=== PATIENT | male | born 1970 | race Caucasian/White ===

== ENCOUNTER 2016-12-18 12:01 | Emergency (ER) | payer OTHER ==
[2016-12-18 12:01] VITALS: BMI 29.5
--- NOTE | 2016-12-18 12:35 | ED PDOC ---
Arrival/HPI - General Chief Complaint: Abdominal Pain Time Seen by Provider: 12/18/16 12:31 - History of Present Illness Narrative History of Present Illness (Text): 46M c/o pain and swelling in the left side of his face, mild for a few days then became worse yesterday. no f/c, n/v. he had same sx a year ago and sx resolved after taking antibiotics. he also reports sinus drainage for several weeks. Past Medical History - Infectious Disease Hx of Infectious Diseases: None - Cardiac Hx Cardiac Disorders: No Hx Pacemaker: No - Pulmonary Hx Respiratory Disorders: No - Neurological Hx Neurological Disorder: No Hx Paralysis: No - HEENT Hx HEENT Disorder: No - Renal Hx Renal Disorder: No - Endocrine/Metabolic Hx Endocrine Disorders: No - Hematological/Oncological Hx Blood Disorders: No Hx Blood Transfusions: No Hx Blood Transfusion Reaction: No - Integumentary Hx Dermatological Disorder: No - Musculoskeletal/Rheumatological Hx Musculoskeletal Disorders: No - Gastrointestinal Hx Gastrointestinal Disorders: No - Genitourinary/Gynecological Hx Genitourinary Disorders: No - Psychiatric Hx Psychophysiologic Disorder: No Hx Emotional Abuse: No Hx Physical Abuse: No Hx Substance Use: No - Anesthesia Hx Anesthesia Reactions: No Hx Malignant Hyperthermia: No - Suicidal Assessment Feels Threatened In Home Enviroment: No Family/Social History Family/Social History: Other (nc) Smoking Status: Never Smoked Hx Alcohol Use: Yes (SOCIALLY) Hx Substance Use: No Allergies/Home Meds Allergies/Adverse Reactions: Allergies No Known Allergies Allergy (Verified 05/04/16 11:12) Home Medications: Home Meds Medication Instructions Recorded Confirmed No Known Home Med 12/18/16 12/18/16 Review of Systems - Review of Systems Constitutional: absent: Fevers Eyes: absent: Vision Changes, Photophobia, Eye Pain ENT: Sinus Congestion. absent: Epistaxis Respiratory: absent: SOB Cardiovascular: absent: Chest Pain Gastrointestinal: absent: Nausea, Vomiting Neurological: absent: Dizziness, Focal Weakness Physical Exam Vital Signs Reviewed: Yes Appearance: Positive for: Well-Appearing, Non-Toxic, Comfortable Pain Distress: None Mental Status: Positive for: Alert and Oriented X 3 - Systems Exam Head: Present: Atraumatic Pupils: Present: PERRL Extroacular Muscles: Present: EOMI (no pain w eye movement) Mouth: Present: Moist Mucous Membranes, Other (no abscess). No: Drooling, Trismus Neck: Present: Normal Range of Motion Respiratory/Chest: No: Accessory Muscle Use Cardiovascular: Present: Regular Rate and Rhythm Neurological: Present: GCS=15, CN II-XII Intact, Motor Func Grossly Intact, Normal Sensory Function Skin: Present: Warm, Dry, Other (there is some mild erythema and edema over the left maxilla. no sandra-orbital involvment. ) Psychiatric: Present: Alert, Oriented x 3 Disposition/Present on Arrival - Present on Arrival Any Indicators Present on Arrival: No History of DVT/PE: No History of Uncontrolled Diabetes: No Urinary Catheter: No History of Decub. Ulcer: No History Surgical Site Infection Following: None - Disposition Have Diagnosis and Disposition been Completed?: Yes Diagnosis: Facial cellulitis Disposition: HOME/ ROUTINE Disposition Time: 12:33 Condition: GOOD Discharge Instructions (ExitCare): Cellulitis (ED)
[2016-12-18 13:04] VITALS: BP 142/71; PULSE 77; RESP 18; TEMP 98; O2SAT 99
== END 2016-12-18 12:50 | disposition home or self-care (01) ==
LOC: ED 12:01
DX: L03.211 Cellulitis of face (principal)

== ENCOUNTER 2017-11-16 08:24 | Day surgery (SDC) | payer OTHER ==
[2017-11-09 11:30] VITALS: BMI 28.8
[2017-11-16] MEDS ORDERED: Lidocaine 1% Inj (20ml) ONE (10:10)
[2017-11-16] MEDS ORDERED: Propofol 10 mg/ml Inj (20 ML) ONE ×2 (10:10→10:19)
[2017-11-16] MEDS ORDERED: Sodium Chloride 0.9% 1,000 ML IV SCH (11:00)
[2017-11-16 11:48] VITALS: BP 123/79; PULSE 67; RESP 18; TEMP 98.3; O2SAT 96
== END 2017-11-16 11:53 | disposition home or self-care (01) ==
LOC: ENDO 08:24
PROVIDERS: ATTEND Internal Medicine Gastroenterology
DX: K64.8 Other hemorrhoids (principal); Z12.11 Encounter for screening for malignant neoplasm of colon; Z80.0 Family history of malignant neoplasm of digestive organs; Z86.010 Personal history of colon polyps
CPT/HCPCS: 45378; J2704; J7030; J7040

== ENCOUNTER 2018-05-08 12:16 | Outpatient (CLI) | payer OTHER | END 2018-05-08 12:17 | disposition home or self-care (01) | LOC: RAD 12:17 ==